=== PATIENT | female | born 2000 | race African-American/Black ===

== ENCOUNTER → 2023-03-31 | Emergency (ER) | payer BC ==
[~2023-03-31] MED LIST: ACETAMINOPHEN 500 MG TAB ONE; IBUPROFEN 400 MG TAB ONE; NA CHLORIDE 0.9% 1,000 ML ONE; OSELTAMIVIR 75 MG CAP PO ONE
[2023-03-31 14:45] LABS: SARS-CoV-2 Antigen Rapid Res Negative (Negative)
[2023-03-31 15:11] LABS: Absolute Lymphocytes (CBC) 0.5 K/uL (0.7-4.9); Lymphocytes % 4.9 % (15.3-44.8); MCV 73.8 fL (80-100); MPV 7.8 fL (7.6-11.3); Platelets 280 thou/uL (152-406); RBC Red Blood Cell Count 4.74 M/uL (3.86-4.86)
[2023-03-31 15:36] LABS: Albumin 3.6 g/dL (3.4-5.0); Bilirubin Total 0.2 mg/dL (0.2-1.0); Potassium 3.4 mEq/L (3.5-5.1); Protein, Total 7.6 g/dL (6.4-8.2)
[2023-03-31 16:31] LABS: Blood Morphology Comment NOTED (NOT SEEN); Platelet Estimate ADEQ; White Blood Cell Scan OK (OK)
[2023-03-31 16:32] LABS: Stomatocytes 1+
--- NOTE | 2023-03-31 16:58 | EDPHYS ---
Physician Documentation [facility] Name: Pushpa Hobbs Age: 22 yrs Sex: Female : 2000 Arrival Date: 03/31/2023 Time: 13:34 Bed 9 Private MD: ED Physician Jack Villaseñor HPI: 03/31 14:10 This 22 yrs old Black Female presents to ER via Ambulatory with complaints of Fever, sb4 Flu Symptoms. 14:10 patient comes in unkempt, barely verbalizing her complaints. she is visibly shaking and sb4 crying during triage. complains of being cold, hurting all over, and generally feeling unwell. she denies any sick contacts. she states she has taken advil PM at home but cannot tell me when. she denies any nausea, vomiting, diarrhea, abdominal pain, back pain, urinary symptoms, shortness of breath, chest pain. [employer]: 15:04 LMP 03/2023, unknown cp4 Historical: - Allergies: 13:56 No Known Allergies; ko1 - Home Meds: 13:56 None [Active]; ko1 - PMHx: 13:56 None; ko1 - Immunization history:: Adult Immunizations unknown. - Social history:: Smoking status: Patient denies any tobacco usage or history of. ROS: 14:10 Cardiovascular: Negative for chest pain, palpitations, and edema, sb4 14:10 Constitutional: Positive for body aches, chills, fatigue, fever, malaise, 14:10 All other systems are negative, Exam: 14:10 Head/Face: Normocephalic, atraumatic. Eyes: Extra-ocular motions intact. Periorbital sb4 areas with no swelling, redness, or edema. ENT: Mucous membranes moist. Respiratory: Lungs have equal breath sounds bilaterally, clear to auscultation and percussion. No rales, rhonchi or wheezes noted. No increased work of breathing, no retractions or nasal flaring. Abdomen/GI: Soft, non-tender, no distension. MS/ Extremity: Pulses equal, no cyanosis. Neurovascular intact. Full, normal range of motion. Neuro: Awake and alert, GCS 15, oriented to person, place, time, and situation. Motor strength 5/5 in all extremities. Sensory grossly intact. 14:10 Constitutional: The patient appears alert, awake, febrile, obese, restless, uncomfortable, unkempt, 14:10 Cardiovascular: Rate: tachycardic, Rhythm: regular, Pulses: no pulse deficits are appreciated, Heart sounds: normal, 14:10 Skin: Appearance: normal except for affected area, Temperature: warm, Vital Signs: 13:54 BP 113 / 66; Pulse 134; Resp 18; Temp 104.5; Pulse Ox 100% ; ko1 13:57 Weight 111.13 kg; ko1 15:04 Temp 103.1; cp4 15:47 Pulse 104; Resp 18; Temp 100.8; cp4 MDM: 13:59 Patient medically screened. sb4 14:10 Differential diagnosis: viral Infection, bacterial infection, URI, pneumonia UTI, sb4 gastroenteritis. 16:57 Data reviewed: vital signs, nurses notes, lab test result(s), and as a result, I will sb4 discharge patient. Counseling: I had a detailed discussion with the patient and/or guardian regarding the historical points, exam findings, and any diagnostic results supporting the discharge/admit diagnosis, lab results, to return to the emergency department if symptoms worsen or persist or if there are any questions or concerns that arise at home. 03/31 13:55 Order name: Blood Culture Adult (2) 4 03/31 13:55 Order name: CBC with Diff; Complete Time: 16:33 sb4 03/31 13:55 Order name: CMP; Complete Time: 15:37 sb4 03/31 13:55 Order name: Lactate w/ 2H reflex if indic.; Complete Time: 15:35 sb4 03/31 13:55 Order name: SARS RAPID; Complete Time: 14:46 sb4 03/31 13:55 Order name: Flu; Complete Time: 14:33 sb4 03/31 13:55 Order name: Strep sb4 03/31 14:36 Order name: Throat Culture EDNY 03/31 16:32 Order name: CBC Smear Scan; Complete Time: 16:33 EDMS 03/31 13:55 Order name: Accucheck; Complete Time: 14:57 sb4 03/31 13:55 Order name: Cardiac monitoring; Complete Time: 14:57 sb4 03/31 13:55 Order name: IV Saline Lock - Large Bore; Complete Time: 14:57 sb4 03/31 13:55 Order name: Labs collected and sent; Complete Time: 14:57 sb4 03/31 13:55 Order name: Vital Signs; Complete Time: 14:57 sb4 Administered Medications: 14:04 Drug: Acetaminophen PO 1000 mg PO once Route: PO; ko1 15:05 Drug: NS 0.9% IV (30 ml/kg) 30 ml/kg IV at bolus once; Sepsis Protocol Route: IV; Rate: cp4 bolus; Site: right antecubital; 15:05 Drug: Oseltamivir PO 75 mg PO once Route: PO; cp4 15:53 Drug: Ibuprofen PO 800 mg PO once Route: PO; cp4 Disposition Summary: 03/31/23 16:57 Discharge Ordered Notes: Location: Home sb4 Problem: new sb4 Symptoms: have improved sb4 Condition: Stable sb4 Diagnosis - Influenza A sb4 Followup: sb4 - With: Emergency Department - When: As needed - Reason: Trouble breathing, Worsening of condition Discharge Instructions: - Discharge Summary Sheet sb4 - Influenza, Adult, [id number] sb4 Forms: - Work release form sb4 - Medication Reconciliation Form sb4 - Thank You Letter sb4 - Antibiotic Education sb4 - Prescription Opioid Use sb4 - Patient Portal Instructions sb4 - Leadership Thank You Letter sb4 Prescriptions: - Tamiflu 75 mg Oral capsule - take 1 tablet ORAL route every 12 hours for 5 days; 10 tablet; Refills: 0, sb4 Product Selection Permitted Addendum: 04/04/2023 08:33 Co-signature as Attending Physician, Jack Villaseñor MD I reviewed the patient's care r n provided by the Advanced Practice Provider and agree with the diagnosis and treatment plan. Signatures: Dispatcher [employer] Jack Carson MD MD rn Oliver, Kathy, RN RN ko1 Laura Jackson PA-C PAHaresh sb4 Allison Burns cp4
--- NOTE | 2023-03-31 16:58 | ER ---
Nurse's Notes [facility] Name: Pushpa Hobbs Age: 22 yrs Sex: Female : 2000 Arrival Date: 03/31/2023 Time: 13:34 Bed 9 Private MD: Diagnosis: Influenza A Presentation: 03/31 13:54 Chief complaint: Patient states: fever, headache , congestion since yesterday. ko1 Coronavirus screen: chills, congestion, cough unrelated to allergies, fatigue, fever, headache, runny nose, Client presents with at least one sign or symptom that may indicate coronavirus-19. Standard/surgical mask placed on the client. Ebola Screen: No symptoms or risks identified at this time. Initial Sepsis Screen: Does the patient meet any 2 criteria? No. Patient's initial sepsis screen is negative. Does the patient have a suspected source of infection? No. Patient's initial sepsis screen is negative. Risk Assessment: Do you want to hurt yourself or someone else? Patient reports no desire to harm self or others. Onset of symptoms was March 31, 2023. 13:54 Method Of Arrival: Ambulatory ko1 13:54 Acuity: ALEX 3 ko1 Triage Assessment: 13:56 General: Appears distressed, ill, Behavior is appropriate for age, restless. Pain: ko1 Complains of pain in headache. FIRST LEVELER: 15:04 LMP 03/2023, unknown cp4 Historical: - Allergies: 13:56 No Known Allergies; ko1 - Home Meds: 13:56 None [Active]; ko1 - PMHx: 13:56 None; ko1 - Immunization history:: Adult Immunizations unknown. - Social history:: Smoking status: Patient denies any tobacco usage or history of. Screenin:05 [facility] ED Fall Risk Assessment (Adult) History of falling in the last 3 months, cp4 including since admission No falls in past 3 months (0 pts) Confusion or Disorientation No (0 pts) Intoxicated or Sedated No (0 pts) Impaired Gait No (0 pts) Mobility Assist Device Used No (0 pt) Altered Elimination No (0 pt) Score/Fall Risk Level 0 - 2 = Low Risk Oriented to surroundings, Maintained a safe environment, Educated pt \T\ family on fall prevention, incl call for assistance when getting out of bed, Assessed \T\ reinforced patient's understanding of fall precautions, Hourly rounding (assess needs \T\ fall precautionary measures) done. Abuse screen: Denies threats or abuse. Nutritional screening: No deficits noted. Tuberculosis screening: No symptoms or risk factors identified. Assessment: 15:05 General: Appears ill, Behavior is calm, cooperative, appropriate for age. Pain: Pain cp4 currently is 10 out of 10 on a pain scale. Vital Signs: 13:54 BP 113 / 66; Pulse 134; Resp 18; Temp 104.5; Pulse Ox 100% ; ko1 13:57 Weight 111.13 kg; ko1 15:04 Temp 103.1; cp4 15:47 Pulse 104; Resp 18; Temp 100.8; cp4 ED Course: 13:39 Patient arrived in ED. ts1 13:39 Laura Jackson PA-C is PHCP. sb4 13:39 Jack Villaseñor MD is Attending Physician. sb4 13:56 Triage completed. ko1 13:56 Arm band placed on right wrist. Patient placed in waiting room, Patient notified of ko1 wait time. 14:04 Strep Sent. ko1 14:04 Flu Sent. ko1 14:04 SARS RAPID Sent. ko1 14:38 Allison Burns is Primary Nurse. cp4 14:57 Blood Culture Adult (2) Sent. cp4 14:57 CBC with Diff Sent. cp4 14:57 CMP Sent. cp4 14:57 Lactate w/ 2H reflex if indic. Sent. cp4 15:05 Bed in low position. Call light in reach. Side rails up X 1. cp4 15:05 No provider procedures requiring assistance completed. Inserted saline lock: 20 gauge cp4 in right antecubital area, using aseptic technique. Blood collected. 17:10 Provided Education on: influenza. cp4 17:10 intact, bleeding controlled, No redness/swelling at site. Pressure dressing applied. cp4 Administered Medications: 14:04 Drug: Acetaminophen PO 1000 mg PO once Route: PO; ko1 15:05 Drug: NS 0.9% IV (30 ml/kg) 30 ml/kg IV at bolus once; Sepsis Protocol Route: IV; Rate: cp4 bolus; Site: right antecubital; 15:05 Drug: Oseltamivir PO 75 mg PO once Route: PO; cp4 15:53 Drug: Ibuprofen PO 800 mg PO once Route: PO; cp4 Medication: 15:05 VIS not applicable for this client. cp4 Outcome: 16:57 Discharge ordered by . sb4 17:11 Discharged to home ambulatory, cp4 17:11 Condition: stable 17:11 Discharge instructions given to patient, Instructed on discharge instructions, follow up and referral plans. medication usage, Demonstrated understanding of instructions, follow-up care, medications, Prescriptions given X 1, 17:11 Patient left the ED. cp4 Signatures: Sunni Bourgeois RN RN koLaura Up, PA-C PA-C sb4 Va Galarza PAS PAS ts1 Allison Burns cp4
[2023-03-31 18:58] VITALS: BP 113/66; O2SAT 100
[2023-03-31 19:03] VITALS: TEMP 100.8
== END ==
LOC: ER 13:34
DX: J10.1 Influenza due to other identified influenza virus with other respiratory manifestations (principal); Z11.52 Encounter for screening for COVID-19
CPT/HCPCS: 87040 ×2; 87070; 85025; 36415; 87081; 83605; 80053; 87804 ×2; 96374; 99284; 87811; J7030

== ENCOUNTER 2023-11-12 00:56 | Emergency (ER) | payer BC ==
[2023-11-12] MEDS ORDERED: DIAZEPAM 5 MG TABLET ONE ×2 (02:09→02:16)
[2023-11-12 02:18] LABS: Absolute Basophils 0.1 K/uL (0-0.5); Absolute Eosinophils 0.2 K/uL (0-0.5); Absolute Lymphocytes (CBC) 2.4 K/uL (0.7-4.9); Absolute Monocytes 0.6 K/uL (0.1-1.3); Absolute Neutrophil 4.7 K/uL (1.8-8.0); Basophils % 0.7 % (0-1.3); Hematocrit 37.1 % (36.0-45.0); Hemoglobin 11.6 g/dL (12.0-15.0); MCHC 31.3 g/dL (32.0-36.0); MCV 76.9 fL (80-100); MPV 8.3 fL (7.6-11.3); Monocytes % 7.7 % (3.3-12.3); Neutrophils % 58.6 % (41.7-73.7); Platelets 306 thou/uL (152-406); RBC Red Blood Cell Count 4.82 M/uL (3.86-4.86); Red Cell Distribution Width 16.6 % (12.1-15.2)
[2023-11-12 02:21] LABS: Specific Gravity > 1.030 (1.005-1.030); Urine Bacteria None Seen /HPF (<20); Urine Bilirubin NEGATIVE (Negative); Urine Blood Negative (Negative); Urine Clarity Extremely Turbid (Clear); Urine Color Yellow (Yellow); Urine Culture Reflex Order NOT NEEDED; Urine Glucose NEGATIVE (Negative); Urine Ketones NEGATIVE (Negative); Urine Microscopic Reflex YN ORDER UMIC; Urine Mucus 2+ /HPF (None Seen); Urine Nitrite NEGATIVE (Negative); Urine Protein TRACE (Negative); Urine Urobilinogen 1+ (Normal); Urine WBC <5 /HPF (<5)
[2023-11-12 02:25] LABS: PT Prothrombin Time 11.5 SECONDS (9.4-12.5); Protime INR 1.03
[2023-11-12 02:26] LABS: Barbiturates NEGATIVE (NEGATIVE); Benzodiazepines NEGATIVE (NEGATIVE); Cocaine NEGATIVE (NEGATIVE); METHAMPHETAM NEGATIVE (NEGATIVE); Methadone NEGATIVE (NEGATIVE); Opiates NEGATIVE (NEGATIVE); PTT, Activated Partial Thromb 31.9 SECONDS (24.3-36.9); Phencyclidine NEGATIVE (NEGATIVE); THC Cannibis NEGATIVE (NEGATIVE)
[2023-11-12 02:32] LABS: ALT/SGPT 22 U/L (13-56); AST/SGOT 15 U/L (15-37); Albumin 3.5 g/dL (3.4-5.0); Albumin/Globulin Ratio 0.9 (1.1-1.8); Alkaline Phosphatase 74 U/L (45-117); Anion Gap 6.3 mEq/L (5.0-15.0); BUN Blood Urea Nitrogen 8 mg/dL (7-18); Bicarbonate 31 mEq/L (21-32); Bilirubin Total 0.3 mg/dL (0.2-1.0); Globulin 3.9 g/dL (2.3-3.5); Glomerular Filtration Rate 87 ml/min (=/>90); Glucose Level 118 mg/dL (74-106); Potassium 3.3 mEq/L (3.5-5.1); Protein, Total 7.4 g/dL (6.4-8.2); Sodium Level 140 mEq/L (136-145)
[2023-11-12 02:38] LABS: Bilirubin Direct < 0.2 mg/dL (0-0.2); Bilirubin Indirect, Calculated 0.1 mg/dL (0.2-0.8)
[2023-11-12 02:49] LABS: Specific Gravity > 1.030 (1.005-1.030)
--- NOTE | 2023-11-12 05:34 | ER ---
Nurse's Notes [facility] [place], [place] Name: Pushpa Hobbs Age: 22 yrs Sex: Female : 2000 Arrival Date: 11/12/2023 Time: 00:56 Bed 17 Private MD: Diagnosis: Acute worsening of depression, suicidal ideation, mood disorder not otherwise specified Presentation: 11/11 00:56 Chief complaint: Patient states: "I'm just tired and don't know what to do anymore". jw7 00:56 Coronavirus screen: At this time, the client does not indicate any symptoms associated jw7 with coronavirus-19. Ebola Screen: No symptoms or risks identified at this time. Initial Sepsis Screen: Does the patient meet any 2 criteria? No. Patient's initial sepsis screen is negative. Does the patient have a suspected source of infection? No. Patient's initial sepsis screen is negative. Risk Assessment: Do you want to hurt yourself or someone else? Patient reports desire/thoughts of hurting themselves or someone else. Provider notified. Onset of symptoms was November 12, 2023. 00:56 Method Of Arrival: Law Enforcement: [place] [employer] jw7 00:56 Acuity: ALEX 3 jw7 Triage Assessment: 00:56 General: Appears in no apparent distress. comfortable, Behavior is cooperative, jw7 anxious, crying. Pain: Denies pain. EENT: No deficits noted. No signs and/or symptoms were reported regarding the EENT system. Neuro: Level of Consciousness is awake, alert, obeys commands, Oriented to person, place, time, situation, Appropriate for age. Cardiovascular: Heart tones S1 S2 present Capillary refill < 3 seconds Clubbing of nail beds is absent JVD is absent Patient's skin is warm and dry. Respiratory: Airway is patent Trachea midline Respiratory effort is even, unlabored, Respiratory pattern is regular, symmetrical, Breath sounds are clear bilaterally. GI: Abdomen is round non-distended, Bowel sounds present X 4 quads. Abd is soft and non tender X 4 quads. : No deficits noted. No signs and/or symptoms were reported regarding the genitourinary system. Derm: Skin is intact, is healthy with good turgor, Skin is dry, Skin is normal, Skin temperature is warm. Musculoskeletal: Circulation, motion, and sensation intact. Range of motion: intact in all extremities. SCRAPER HAND: 05:00 LMP 2023, unknown jw7 Historical: - Allergies: 00:56 No Known Allergies; jw7 - PMHx: 02:43 Major depressive disorder; Anxiety; jw7 - PSHx: 00:56 None; jw7 - Immunization history:: Adult Immunizations up to date. - Infectious Disease History:: Denies. - Social history:: Smoking status: Patient denies any tobacco usage or history of. - Family history:: not pertinent. Screenin:56 Abuse screen: Denies threats or abuse. Denies injuries from another. jw7 00:56 [facility] ED Fall Risk Assessment (Adult) History of falling in the last 3 months, jw7 including since admission No falls in past 3 months (0 pts) Confusion or Disorientation No (0 pts) Intoxicated or Sedated No (0 pts) Impaired Gait No (0 pts) Mobility Assist Device Used No (0 pt) Altered Elimination No (0 pt) Score/Fall Risk Level 0 - 2 = Low Risk. Nutritional screening: No deficits noted. Tuberculosis screening: No symptoms or risk factors identified. Assessment: 01:00 General: See Triage Assessment. jw7 02:00 Reassessment: Patient appears in no apparent distress at this time. No changes from jw7 previously documented assessment. Patient and/or family updated on plan of care and expected duration. Pain level reassessed. Patient is alert, oriented x 3, equal unlabored respirations, skin warm/dry/pink. 03:00 Reassessment: Patient appears in no apparent distress at this time. No changes from jw7 previously documented assessment. Patient and/or family updated on plan of care and expected duration. Pain level reassessed. Patient is alert, oriented x 3, equal unlabored respirations, skin warm/dry/pink. 04:00 Reassessment: Patient appears in no apparent distress at this time. No changes from jw7 previously documented assessment. Patient and/or family updated on plan of care and expected duration. Pain level reassessed. Patient is alert, oriented x 3, equal unlabored respirations, skin warm/dry/pink. 04:29 General: Pt on the phone with [employer] [facility]. jw7 05:00 Reassessment: Patient appears in no apparent distress at this time. No changes from jw7 previously documented assessment. Patient and/or family updated on plan of care and expected duration. Pain level reassessed. Patient is alert, oriented x 3, equal unlabored respirations, skin warm/dry/pink. 06:33 Reassessment: Patient appears in no apparent distress at this time. No changes from jw7 previously documented assessment. Patient and/or family updated on plan of care and expected duration. Pain level reassessed. Patient is alert, oriented x 3, equal unlabored respirations, skin warm/dry/pink. 07:06 Reassessment: Patient appears in no apparent distress at this time. No changes from jw7 previously documented assessment. Patient and/or family updated on plan of care and expected duration. Pain level reassessed. Patient is alert, oriented x 3, equal unlabored respirations, skin warm/dry/pink. Psych: 00:56 [place] Suicide Severity Screening: In the past month, have you wished you were jw7 or wished you could go to sleep and not wake up? Patient responds "yes." "In the past month, have you actually had any thoughts of killing yourself?" Patient responds "yes." "In your lifetime, have you ever done anything, started to do anything, or prepared to do anything to end your life?" Patient responds "yes." Patient reports suicidal intent occurred greater than 3 months prior. 00:56 Subjective: Patient's mood is sad, hopeless, Delusions are denied, Hallucinations are jw7 denied Having thoughts of suicide. Denies suicidal plan. Objective: Patient is cooperative, Speech is normal, Affect is appropriate. Interventions: Removed personal items and placed in bag. Patient placed in hospital gown. Searched person for dangerous items. Urine collected and sent for urine drug test. Belonging list filled out. Safety Checks: Personal items have been removed. Door is open. No visitors are present at this time. Pt denies substance abuse. Commitment: Commitment papers completed. Vital Signs: 00:56 BP 133 / 94; Pulse 86; Resp 18 S; Temp 98.1(O); Pulse Ox 100% on R/A; Weight 108.86 kg; jw7 Height 5 ft. 7 in. ; Pain 0/10; 07:06 BP 114 / 64; Pulse 72; Resp 16 S; Temp 98.5(O); Pulse Ox 100% on R/A; jw7 00:56 Body Mass Index 37.59 (108.86 kg, 170.18 cm) jw7 00:56 Pain Scale: Adult jw7 Michael Coma Score: 03:28 Eye Response: spontaneous(4). Motor Response: obeys commands(6). Verbal Response: sp4 oriented(5). Total: 15. ED Course: 00:56 Arm band placed on. jw7 00:56 Patient has correct armband on for positive identification. Bed in low position. Call jw7 light in reach. Patient is placed in psych hold. 01:02 Warm blanket given. oe 01:09 Patient arrived in ED. jb4 01:12 Waits, MÓNICA Mena is Primary Nurse. jw7 01:18 Horace Hale MD is Attending Physician. sp4 01:40 Inserted saline lock: 22 gauge in right hand, using aseptic technique. Blood collected. oe Flushed with 10 mL NS. 01:44 EKG done, by ED staff, reviewed by Horace Hale MD. oe 02:37 Triage completed. jw7 02:41 IV discontinued, intact, bleeding controlled, No redness/swelling at site. Pressure jw7 dressing applied, IV removed per patient request. 03:30 Contacted [facility] \\[id number], spoke with Debbi. af3 04:32 Screener Saroj from [facility] called \\[id number], currently speaking with patient. af3 06:06 faxed patient chart to [facility] and [facility] in attempt to find eb placement. 06:35 \\[id number] connected Sultana Britt from [facility] with Trina Britt for patient transfer eb consulltation/ \\[id number] administrative approval given by Sultana COLON, Dr. Still has accepted the patient in transfer without consultation with Dr. Hale. 07:09 No provider procedures requiring assistance completed. jw7 07:09 Provided Education on: use of call light. jw7 Administered Medications: 02:18 Drug: Diazepam PO 10 mg PO once Route: PO; jw7 06:33 Follow up: Response: No adverse reaction; Marked relief of symptoms; Anxiety decreased jw7 Medication: 07:09 VIS not applicable for this client. jw7 Outcome: 05:33 ER care complete, transfer ordered by . sp4 07:09 Discharged to Rehab Facility jw7 07:09 Condition: stable 07:09 Instructed on the need for transfer, Demonstrated understanding of instructions, 07:15 Patient left the ED. jw7 Signatures: Maury Post, RN RN jb4 Berhane Cruz Elizabeth eb Waits, Jodi, MÓNICA RN jw7 Horace Hale MD MD sp4 Dalia [id number] Corrections: (The following items were deleted from the chart) 01:44 01:43 Inserted saline lock: 22 gauge in right hand, using aseptic technique. Blood oe collected. Flushed with 10 mL NS oe 02:43 00:56 PMHx: None; jw7 jw7 07:10 07:06 BP 95 / 69; Pulse 72bpm; Resp 16bpm; Spontaneous; Pulse Ox 100% RA; Temp 98.5F jw7 Oral; jw7
--- NOTE | 2023-11-12 05:35 | EDPHYS ---
Physician Documentation [facility] Name: Pushpa Hobbs Age: 22 yrs Sex: Female : 2000 Arrival Date: 11/12/2023 Time: 00:56 Bed 17 Private MD: ED Physician Horace Hale HPI: 11/11 01:19 This 22 yrs old Black Female presents to ER via Unassigned with complaints of Gen sp4 complaint . 03:28 22-year-old female presents with emotional upset and suicidal ideation. Patient states sp4 that she has been feeling unwell for a long time but tonight she feels definitely suicidal. 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 - Infectious Disease History:: Denies. - Social history:: Smoking status: Patient denies any tobacco usage or history of. - Family history:: not pertinent. ROS: 03:28 Constitutional: Negative for fever, chills, and weight loss, Eyes: Negative for injury, sp4 pain, redness, and discharge, Psych: Positive for depression, positive for suicidal ideation 03:28 All other systems are negative, Exam: 03:28 Constitutional: This is a well developed, well nourished patient who is awake, alert, sp4 and in no acute distress. Head/Face: Normocephalic, atraumatic. Eyes: Pupils equal round and reactive to light, extra-ocular motions intact. Lids and lashes normal. Conjunctiva and sclera are not injected. Cornea within normal limits. Periorbital areas with no swelling, redness, or edema. ENT: Nares patent. No nasal discharge, no septal abnormalities noted. Tympanic membranes are normal and external auditory canals are clear. Oropharynx with no redness, swelling, or masses, exudates, or evidence of obstruction, uvula midline. Mucous membranes moist. Neck: Trachea midline, no thyromegaly or masses palpated, and no cervical lymphadenopathy. Supple, full range of motion without nuchal rigidity, or vertebral point tenderness. Chest/axilla: Normal chest wall appearance and motion. Nontender with no deformity. No lesions are appreciated. Cardiovascular: Regular rate and rhythm with a normal S1 and S2. No gallops, murmurs, or rubs. Normal PMI, no JVD. No pulse deficits. Respiratory: Lungs have equal breath sounds bilaterally, clear to auscultation and percussion. No rales, rhonchi or wheezes noted. No increased work of breathing, no retractions or nasal flaring. Abdomen/GI: Soft, with normal bowel sounds. No distension or tympany. No guarding or rebound. No evidence of tenderness throughout. Back: No spinal tenderness. No costovertebral tenderness. Skin: Warm, dry with normal turgor. Normal color with no rashes, no lesions, and no evidence of cellulitis. MS/ Extremity: Pulses equal, no cyanosis. Neurovascular intact. Full, normal range of motion. Neuro: Awake and alert, GCS 15, oriented to person, place, time, and situation. Cranial nerves II-XII grossly intact. Motor strength 5/5 in all extremities. Sensory grossly intact. Psych: Awake, alert, with orientation to person, place and time. Behavior, mood, and affect are within normal limits 03:28 ECG was reviewed by the Attending Physician. EKG at 0 129 normal sinus rhythm at the rate of 85 Vital Signs: 00:56 BP 133 / 94; Pulse 86; Resp 18 S; Temp 98.1(O); Pulse Ox 100% on R/A; Weight 108.86 kg; jw7 Height 5 ft. 7 in. ; Pain 0/10; 07:06 BP 114 / 64; Pulse 72; Resp 16 S; Temp 98.5(O); Pulse Ox 100% on R/A; jw7 00:56 Body Mass Index 37.59 (108.86 kg, 170.18 cm) jw7 00:56 Pain Scale: Adult jw7 Michael Coma Score: 03:28 Eye Response: spontaneous(4). Motor Response: obeys commands(6). Verbal Response: sp4 oriented(5). Total: 15. MDM: 01:25 Patient medically screened. sp4 05:30 Differential Diagnosis altered mental status, sepsis, flu. Data reviewed: vital signs, sp4 nurses notes, old medical records. Data reviewed: lab test result(s), EKG. 11/11 02:19 Order name: Test, Urine; Complete Time: 03:27 EDMS 11/11 02:21 Order name: Urinalysis w/ reflexes; Complete Time: 03:27 EDMS 11/11 02:24 Order name: CBC with Automated Diff; Complete Time: 03:27 EDMS 11/11 02:26 Order name: Protime (+INR); Complete Time: 03:27 EDMS 11/11 02:26 Order name: PTT, Activated Partial Thromb; Complete Time: 03:27 EDMS 11/11 02:26 Order name: Urine Drug Screen; Complete Time: 03:27 EDMS 11/11 02:31 Order name: Alcohol Serum/Plasma; Complete Time: 03:27 EDMS 11/11 02:35 Order name: Salicylates Level; Complete Time: 03:27 EDMS 11/11 02:39 Order name: Basic Metabolic Panel; Complete Time: 03:27 EDMS 11/11 02:39 Order name: Liver (Hepatic) Function; Complete Time: 03:27 EDMS 11/11 02:39 Order name: Acetaminophen Level; Complete Time: 03:27 EDMS 04 01:11 Order name: EKG - Nurse/Tech; Complete Time: 01:47 sb4 11/11 01:11 Order name: IV Saline Lock; Complete Time: 01:47 sb4 11/11 01:11 Order name: Labs collected and sent; Complete Time: 01:47 sb4 11/11 01:11 Order name: Suicide Precautions; Complete Time: 01:52 sb4 11/11 01:11 Order name: Suicide Screening ([place]); Complete Time: :52 sb4 EC:28 Rate is 85 beats/min. Rhythm is regular, Normal Sinus Rhythm. QRS [place] is Normal. [place] sp4 interval is normal. QRS interval is normal. QT interval is normal. No Q waves. T waves are Normal. No ST changes noted. Clinical impression: Normal ECG. Interpreted by me. Reviewed by me. Administered Medications: 02:18 Drug: Diazepam PO 10 mg PO once Route: PO; jw7 06:33 Follow up: Response: No adverse reaction; Marked relief of symptoms; Anxiety decreased jw7 Disposition Summary: 11/12/23 05:33 Transfer Ordered Notes: Transfer Location: [facility] Facility sp4 Reason: Higher level of care sp4 Condition: Stable sp4 Problem: new sp4 Symptoms: have improved sp4 Accepting Physician: Attending psychiatrist(11/12/23 07:15) jw7 Diagnosis - Acute worsening of depression, suicidal ideation, mood disorder not otherwise sp4 specified Forms: - Medication Reconciliation Form sp4 - SBAR form sp4 Signatures: Trina Parra RN RN jw7 Laura Jackson PA-C PA-C sb4 Horace Hale MD MD sp4 Corrections: (The following items were deleted from the chart) 02:43 00:56 PMHx: None; jw7 jw7 07:15 05:33 Attending psychiatrist sp4 jw7
[2023-11-12 10:15] VITALS: BP 114/64; TEMP 98.5; O2SAT 100
--- NOTE | 2023-11-13 17:01 | EKG ---
Test Date: 2023-11-12 Test Time: 01:29:14 Medicine Aide: LINDA MEASUREMENT RESULTS: Intervals: Rate: 85 KS: 176 QRSD: 92 QT: 374 QTc: 445 Lena: P: 38 KS: 176 QRS: 65 T: 22 INTERPRETIVE STATEMENTS: Normal sinus rhythm Normal ECG No previous ECG available for comparison Electronically Signed On 11-13-23 16:57:20 CDT by Aydin Noel
== END 2023-11-12 07:15 ==
LOC: ER 00:56
DX: R45.851 Suicidal ideations (principal); F32.A Depression, unspecified; F39 Unspecified mood [affective] disorder
CPT/HCPCS: 36415; 80048; 80076; 80143; 80179; 80307; 81001; 81025; 82077; 85025; 85610; 85730; 93005; 99285

== ENCOUNTER 2023-12-22 05:52 | Emergency (ER) | payer BC ==
--- NOTE | 2023-12-22 07:08 | EDPHYS ---
Physician Documentation [facility] Name: Pushpa Hobbs Age: 23 yrs Sex: Female : 2000 Arrival Date: 12/22/2023 Time: 05:52 Bed 13 Private MD: ED Physician Horace Hale HPI: 12/21 06:49 This 23 yrs old Black Female presents to ER via Ambulatory with complaints of Sore sp4 Throat, chills, Pain. Historical: - Allergies: 06:06 No Known Allergies; ss - Home Meds: 06:06 None [Active]; ss - PMHx: 06:06 Anxiety; Major Depressive Disorder; ss - Immunization history:: Client reports having NOT received the Covid vaccine. - Infectious Disease History:: Denies. - Social history:: Smoking status: Patient reports the use of cigarette tobacco products, denies chronic smoking, but will smoke occasionally. Vital Signs: 06:02 BP 138 / 90; Pulse 86; Resp 16; Temp 98.4(O); Pulse Ox 100% on R/A; Weight 113.4 kg; ss Height 5 ft. 7 in. ; Pain 7/10; 07:40 BP 129 / 89; Pulse 81; Resp 18; Temp 98; Pulse Ox 99% on R/A; ph 06:02 Body Mass Index 39.16 (113.40 kg, 170.18 cm) ss 06:02 Pain Scale: Adult ss MDM: 06:06 Patient medically screened. sp4 12/21 06:07 Order name: Strep; Complete Time: 06:41 ss Administered Medications: 07:33 Drug: Ibuprofen PO 800 mg PO once Route: PO; ph 07:41 Follow up: Response: No adverse reaction ph 07:33 Drug: Rocephin (cefTRIAXone) IM 1 grams IM once Route: IM; Site: right deltoid; ph 07:41 Follow up: Response: No adverse reaction ph Disposition Summary: 12/22/23 07:08 Discharge Ordered Notes: Location: Home sp4 Problem: new sp4 Symptoms: have improved sp4 Condition: Stable sp4 Diagnosis - Streptococcal tonsillitis sp4 Followup: sp4 - With: Private Physician - When: 7 - 10 days - Reason: Recheck today's complaints Discharge Instructions: - Discharge Summary Sheet sp4 - Tonsillitis, [id number] sp4 Forms: - Patient Portal Instructions sp4 Prescriptions: - Cephalexin 500 mg Oral Capsule - take 1 capsule ORAL route every 12 hours for 10 days; 20 capsule; Refills: 0, sp4 Product Selection Permitted Signatures: Dispatcher [employer] Temi Alejandro RN Danita Valencia RN Horace Cunningham ph, MD MD sp4
--- NOTE | 2023-12-22 07:08 | ER ---
Nurse's Notes [facility] Name: Pushpa Hobbs Age: 23 yrs Sex: Female : 2000 Arrival Date: 12/22/2023 Time: 05:52 Bed 13 [facility] MD: Diagnosis: Streptococcal tonsillitis Presentation: 12/21 06:02 Chief complaint: Patient states: itchy/ sore throat that began 20 minutes ago when she ss woke up. Pt reports she was diagnosed with strep on 12/10, took her abx and got better then. Coronavirus screen: Client denies travel out of the [place] in the last 14 days. Ebola Screen: Patient denies exposure to infectious person. Patient denies travel to an Ebola-affected area in the 21 days before illness onset. Initial Sepsis Screen: Does the patient meet any 2 criteria? No. Patient's initial sepsis screen is negative. Does the patient have a suspected source of infection? No. Patient's initial sepsis screen is negative. Risk Assessment: Do you want to hurt yourself or someone else? Patient reports no desire to harm self or others. Onset of symptoms was December 22, 2023. 06:02 Method Of Arrival: Ambulatory ss 06:02 Acuity: ALEX 4 ss Historical: - Allergies: 06:06 No Known Allergies; ss - Home Meds: 06:06 None [Active]; ss - PMHx: 06:06 Anxiety; Major Depressive Disorder; ss - Immunization history:: Client reports having NOT received the Covid vaccine. - Infectious Disease History:: Denies. - Social history:: Smoking status: Patient reports the use of cigarette tobacco products, denies chronic smoking, but will smoke occasionally. Screenin:02 [facility] ED Fall Risk Assessment (Adult) History of falling in the last 3 months, jj7 including since admission No falls in past 3 months (0 pts) Confusion or Disorientation No (0 pts) Intoxicated or Sedated Yes (3 pts) Impaired Gait No (0 pts) Mobility Assist Device Used No (0 pt) Altered Elimination No (0 pt) Score/Fall Risk Level 0 - 2 = Low Risk Oriented to surroundings, Maintained a safe environment, Educated pt \T\ family on fall prevention, incl call for assistance when getting out of bed, Assessed \T\ reinforced patient's understanding of fall precautions. Abuse screen: Denies threats or abuse. Nutritional screening: No deficits noted. Tuberculosis screening: No symptoms or risk factors identified. Assessment: 06:02 General: Appears in no apparent distress. comfortable, Behavior is calm, cooperative, jj7 agitated. Pain: Complains of pain in uvula, left aspect of posterior pharynx and right aspect of posterior pharynx. Respiratory: Airway is patent Trachea midline Respiratory effort is even, unlabored, Breath sounds are clear bilaterally. EENT: Throat has enlarged tonsils on left. Vital Signs: 06:02 BP 138 / 90; Pulse 86; Resp 16; Temp 98.4(O); Pulse Ox 100% on R/A; Weight 113.4 kg; ss Height 5 ft. 7 in. ; Pain 7/10; 07:40 BP 129 / 89; Pulse 81; Resp 18; Temp 98; Pulse Ox 99% on R/A; ph 06:02 Body Mass Index 39.16 (113.40 kg, 170.18 cm) ss 06:02 Pain Scale: Adult ss ED Course: 05:55 Patient arrived in ED. gm2 06:02 Karina Arellano, MÓNICA is Primary Nurse. jj7 06:02 Patient has correct armband on for positive identification. Bed in low position. Call jj7 light in reach. Provided Education on: use of call bach. 06:02 No provider procedures requiring assistance completed. jj7 06:06 Triage completed. ss 06:06 Horace Hale MD is Attending Physician. sp4 06:06 Arm band placed on right wrist. ss 06:16 Strep Sent. jj7 07:07 Report given to ANA LUISA SALES. jj7 07:40 Patient did not have IV access during this emergency room visit. ph Administered Medications: 07:33 Drug: Ibuprofen PO 800 mg PO once Route: PO; ph 07:41 Follow up: Response: No adverse reaction ph 07:33 Drug: Rocephin (cefTRIAXone) IM 1 grams IM once Route: IM; Site: right deltoid; ph 07:41 Follow up: Response: No adverse reaction ph Medication: 06:02 VIS not applicable for this client. jj7 Outcome: 07:08 Discharge ordered by . sp4 07:40 Discharged to home ambulatory, ph 07:40 Condition: good 07:40 Discharge instructions given to patient, Instructed on discharge instructions, follow up and referral plans. medication usage, Demonstrated understanding of instructions, follow-up care, medications, Prescriptions given X 1, 07:42 Patient left the ED. ph Signatures: Temi Orr, RN RN Danita Peoples RN RN ph Adan, MÓNICA Collins RN jj7 Horace Hale MD MD sp4 Ellen Degroot 2
[2023-12-22] MEDS ORDERED: CEFTRIAXONE 1000 MG/VIAL ONE (07:21)
[2023-12-22] MEDS ORDERED: IBUPROFEN 400 MG TAB ONE (07:21)
[2023-12-22] MEDS ORDERED: LIDOCAINE 1% MPF 2 ML AMPULE ONE (07:21)
[2023-12-22 07:49] VITALS: BP 129/89; TEMP 98; O2SAT 99
== END 2023-12-22 07:42 | disposition home or self-care (01) ==
LOC: ER 05:52
DX: J03.00 Acute streptococcal tonsillitis, unspecified (principal); F17.210 Nicotine dependence, cigarettes, uncomplicated
CPT/HCPCS: 87081; 96372; 99284; J0696

== ENCOUNTER 2024-05-08 22:05 | Emergency (ER) | payer BC ==
[2024-05-08] MEDS ORDERED: MORPHINE 4 MG/ML SYR ONE (22:42)
[2024-05-08] MEDS ORDERED: ONDANSETRON 4 MG/2 ML VIAL ONE (22:42)
[2024-05-08] MEDS ORDERED: NA CHLORIDE 0.9% 500 ML ONE (22:47)
[2024-05-08] MEDS ORDERED: HYDROMORPHONE HCL 0.5 MG/0.5 ML INJ ONE (23:41)
[2024-05-08] MEDS ORDERED: KETOROLAC 30 MG/ML INJ ONE (23:41)
[2024-05-09 00:19] LABS: Urine Bacteria None Seen /HPF (<20); Urine Bilirubin NEGATIVE (Negative); Urine Blood Negative (Negative); Urine Clarity Extremely Turbid (Clear); Urine Color Light-Yellow (Yellow); Urine Culture Reflex Order NOT NEEDED; Urine Glucose NEGATIVE (Negative); Urine Ketones NEGATIVE (Negative); Urine Microscopic Reflex YN ORDER UMIC; Urine Mucus Slight /HPF (None Seen); Urine Nitrite NEGATIVE (Negative); Urine Protein TRACE (Negative); Urine Urobilinogen 1+ (Normal); Urine WBC <5 /HPF (<5); Urine pH 6.5 (5.0-7.0)
--- NOTE | 2024-05-09 01:32 | RAD REPORT ---
PROCEDURE: CT Lumbar Spine Without Intravenous Contrast CLINICAL INDICATION: The patient is 23 years old and is Female; Lower back pain. TECHNIQUE: Axial computed tomography images of the lumbar spine without intravenous contrast. Sagittal and cor onal reformatted images were created and reviewed. This CT exam was performed using one or more of the following dose reduction techniques: automated exposure control, adjustment of the mA and/or kV according to patient size, and/or use of iterative reconstruction technique. COMPARISON: None. FINDINGS: VERTEBRAE: No acute fracture. No subluxation or dislocation. No periosteal reaction. No suspicious lytic or blastic bone lesion. No vertebral body height loss. DISCS/SPINAL CANAL/NEURAL FORAMINA: No acute findings. No spinal canal stenosis. SOFT TISSUES: Unremarkable IMPRESSION: No acute abnormality of the lumbar spine. Electronically signed by: Cisco Interiano MD 05/09/2024 01:29 AM [facility] Due to temporary technical issues with the [employer] reporting system, reports are being william d by the in-house radiologist without review as a courtesy to ensure prompt reporting the interpreting radiologist is fully responsible for the content of the report. Transcribed Date/Time: 05/09/2024 1:32 AM
--- NOTE | 2024-05-09 01:43 | EDPHYS ---
Physician Documentation [facility] Name: Pushpa Hobbs Age: 23 yrs Sex: Female : 2000 Arrival Date: 05/08/2024 Time: 22:05 Bed 14 Private MD: ED Physician Padlila Corrigan HPI: 05/09 02:21 This 23 yrs old Black Female presents to ER via EMS with complaints of Back Pain. dr5 02:21 The patient presents with pain that is acute, with no known mechanism of injury. The dr5 symptoms are located in the lumbar area. Onset: The symptoms/episode began/occurred acutely. Patient is a 23-year-old female with history of anxiety and depression coming in with lower back pain that started at 4:00 yesterday afternoon out of nowhere. Patient denies numbness or tingling to bilateral legs, perirectal numbness, urinary or bowel incontinence, fever, IV drug use, or falls.. 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 - Infectious Disease History:: Denies. - Social history:: Smoking status: Reported history of juuling and/or vaping. ROS: 05/09 02:21 Constitutional: as per hpi dr5 Exam: 02:21 Constitutional: This is a well developed, well nourished patient who is awake, alert, dr5 and in no acute distress. Head/Face: Normocephalic, atraumatic. Eyes: Pupils equal round and reactive to light, extra-ocular motions intact. Lids and lashes normal. Conjunctiva and sclera are non-icteric and not injected. Cornea within normal limits. Periorbital areas with no swelling, redness, or edema. Neck: Trachea midline, no thyromegaly or masses palpated, and no cervical lymphadenopathy. Supple, full range of motion without nuchal rigidity, or vertebral point tenderness. No Meningismus. Chest/axilla: Normal chest wall appearance and motion. Nontender with no deformity. No lesions are appreciated. Cardiovascular: Regular rate and rhythm with a normal S1 and S2. Normal PMI, no JVD. No pulse deficits. Respiratory: Lungs have equal breath sounds bilaterally, clear to auscultation. No rales, rhonchi or wheezes noted. No increased work of breathing, no retractions or nasal flaring. Back: No spinal tenderness. No costovertebral tenderness. Full range of motion. Skin: Warm, dry with normal turgor. Normal color with no rashes, no lesions, and no evidence of cellulitis. MS/ Extremity: Pulses equal, no cyanosis. Neurovascular intact. Full, normal range of motion. Neuro: Awake and alert, GCS 15, oriented to person, place, time, and situation. Cranial nerves II-XII grossly intact. Motor strength 5/5 in all extremities. Sensory grossly intact. Cerebellar exam normal. Normal gait. 02:23 Neuro: Exam negative for acute changes, dr5 Vital Signs: 05/08 22:15 Pulse 76; Resp 17; Temp 98.2; Pulse Ox 99% ; Weight 122.47 kg; Height 5 ft. 7 in. ; me1 Pain 0/10; 05/09 00:06 BP 120 / 82; Pulse 75; Resp 16; Pulse Ox 100% on R/A; jb4 01:34 BP 129 / 96; Pulse 71; Resp 16; Pulse Ox 94% on R/A; jb4 05/08 22:15 Body Mass Index 42.29 (122.47 kg, 170.18 cm) tx1 05/08 22:15 Pain Scale: Adult tx1 MDM: 05/08 22:16 Medical Screening Exam initiated dr5 05/09 02:21 Differential diagnosis: ruptured disc, sprain, vertebral fracture. Data reviewed: vital dr5 signs, nurses notes, lab test result(s), radiologic studies, CT scan. I considered the following discharge prescriptions or medication management in the emergency department Medications were administered in the Emergency Department. See MAR. Care significantly affected by the following chronic conditions: Depression, anxiety. Care significantly affected by the following Social Determinants of Health: Poor access to healthcare and/or lack of insurance, Poor access to transportation, Problems related to employment. Counseling: I had a detailed discussion with the patient and/or guardian regarding the historical points, exam findings, and any diagnostic results supporting the discharge/admit diagnosis, the presence of at least one elevated blood pressure reading (>120/80) during this emergency department visit, lab results, radiology results, the need for outpatient follow up, for definitive care, a family practitioner, to return to the emergency department if symptoms worsen or persist or if there are any questions or concerns that arise at home. ED course: Patient reports that pain is improved slightly. Patient has requested to Xanax multiple times on discharge. Patient's back exam has changed multiple times and patient sometimes is able to walk, sometimes is able to sidestep. When patient was getting into a car patient got out of wheelchair without difficulties hopped up and walk to the car. Recommended patient follow-up with primary care doctor this week. 05/08 22:32 Order name: Urinalysis w/ reflexes; Complete Time: 00:48 dr5 05/08 22:32 Order name: Test, Urine; Complete Time: 00:48 dr5 05/08 23:13 Order name: CT Lumbar Spine Wo Con; Complete Time: 01:39 dr5 Administered Medications: 05/08 22:51 Drug: morphine IVP or IV 4 mg IVP once over 4 mins Route: IVP; Infused Over: 4 mins; me1 Site: right hand; 05/09 01:35 Follow up: Response: No adverse reaction jb4 05/08 22:51 Drug: Ondansetron IVP 4 mg IVP once; over 2 minutes Route: IVP; Site: right hand; me1 23:50 Follow up: Response: No adverse reaction me1 23:49 Drug: Ketorolac IVP 15 mg IVP once Route: IVP; Site: right hand; me1 23:49 Follow up: Response: No adverse reaction me1 23:50 Drug: NS 0.9% IV 500 ml IV at bolus once; to be given as a bolus over 30 minutes Route: me1 IV; Rate: bolus; Site: right hand; 05/09 01:30 Follow up: IV Status: Completed infusion; IV Intake: 500ml rg5 05/08 23:50 Drug: HYDROmorphone IVP 0.5 mg IVP once Route: IVP; Site: right hand; me1 05/09 01:35 Follow up: Response: No adverse reaction; Marked relief of symptoms; Pain is decreased jb4 Disposition Summary: 05/09/24 01:42 Discharge Ordered Notes: Location: Home dr5 Condition: Stable dr5 Diagnosis - Strain of muscle, fascia and tendon of lower back dr5 Followup: dr5 - With: Emergency Department - When: As needed - Reason: Worsening of condition Followup: dr5 - With: Private Physician - When: 1 - 2 days - Reason: Recheck today's complaints, Continuance of care, Re-evaluation by your physician Discharge Instructions: - Discharge Summary Sheet dr5 - Acute Back Pain, Adult dr5 Forms: - Medication Reconciliation Form dr5 - Prescription Opioid Use dr5 - Patient Portal Instructions dr5 - Leadership Thank You Letter dr5 Prescriptions: - Cyclobenzaprine 10 mg Oral Tablet - take 1 tablet ORAL route every 8 hours As needed; 30 tablet; Refills: 0, dr5 Product Selection Permitted - Tramadol 50 mg Oral Tablet - take 1 tablet ORAL route every 8 hours as needed; 12 tablet; Refills: 0, dr5 Product Selection Permitted - Medrol (Main) 4 mg Oral Tablets, Dose Pack - take 1 tablet ORAL route as directed - follow package instructions; 1 packet; dr5 Refills: 0, Product Selection Permitted Addendum: 05/10/2024 13:00 Co-signature as Attending Physician, Padilla Corrigan MD I agree with the assessment and c alonso plan of care. Signatures: Dispatcher [employer] Padilla Knott MD MD cha Eddleman, Michelle, RN RN me1 Ron Vicente, LOAD TEST MECHANIC-C LOAD TEST MECHANIC-Cdr5 Maury Post RN jb4 Jordon Clark RN rg5
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
[2024-05-09 11:03] VITALS: TEMP 98.2
[2024-05-09 11:13] VITALS: BP 129/96; O2SAT 94
== END 2024-05-09 02:17 | disposition home or self-care (01) ==
LOC: ER 22:05
DX: S39.012A Strain of muscle, fascia and tendon of lower back, initial encounter (principal)
CPT/HCPCS: 96361; 81001; 81025; 72131; 96375; 96374; 99284; J1171; J2405; J7040